=== PATIENT | male | born 2000 | race Caucasian/White ===

== ENCOUNTER 2018-09-01 22:41 | Emergency (ER) | payer OTHER ==
[~2018-09-01] VITALS: Ht 170.2 cm; Wt 94.7 kg
[~2018-09-01 22:41] MED LIST: OXYM15SP34 NASAL; SODI104S2 NASAL
[2018-09-01 22:54] VITALS: BP 142/62; PULSE 91; RESP 18; Ht 170.2 cm; Wt 94.7 kg
[2018-09-02] MEDS ORDERED: OXYMETAZOLINE 0.05% 15 ML NAS SPRAY NASAL ONE
--- NOTE | 2018-09-02 02:06 | ERD ---
ER Documentation Chief Complaint Chief Complaint epistaxis x3hrs from bilateral nares, felt dizzy/lightheaded HPI History of Present Illness: 17-year-old male who denies a past medical history coming with complaint of nosebleed that is been present for 3 hours intermittently prior to arrival which started immediately after his shower. Patient reports that he decided to come to emergency department because he started feeling lightheaded. Patient reports this is his third nosebleed this week. Denies picking nose or inserting anything into the nose. At home pharmacological/nonpharmacological treatment for symptoms: Denies Denies social concerns; Denies recent foreign travel ROS All systems reviewed and are negative except as per history of present illness. Medications Home Meds Active Scripts Sodium Chloride (Chester) 104 Ml Ruth, 1 SPRAY NASAL DAILY PRN for PREVENT NOSE BLEEDS, #1 BOTTLE Prov:ALFONSO HOU NP 09/02/18 Oxymetazoline Hcl* (Afrin Ruth*) 0.05% - 15 Ml Ruth, 3 SPRAYS NASAL BID for 3 Days, #1 EA to each nostril Prov:ALFONSO HOU NP 09/02/18 Allergies Allergies: Coded Allergies: No Known Allergy (Unverified , 09/01/18) PMhx/Soc Medical and Surgical Hx: pt denies Medical Hx, pt denies Surgical Hx Hx Alcohol Use: No Hx Substance Use: No Hx Tobacco Use: No Smoking Status: Never smoker FmHx Family History: No diabetes, No coronary disease Physical Exam Vitals Vital Signs Date Temp Pulse Resp B/P (MAP) Pulse Ox O2 O2 Flow FiO2 Time Delivery Rate 09/01/18 97.7 91 18 142/62 99 22:54 (88) Physical Exam Const: No acute distress, afebrile Head: Atraumatic Eyes: Normal Conjunctiva ENT: Normal External Ears, and Mouth. Dried blood noted to bilateral naris, unable to visualize LONE vessel that is causing bleeding. Neck: Full range of motion. No meningismus. Resp: Clear to auscultation bilaterally Cardio: Regular rate and rhythm, no murmurs Abd: Soft, non tender, non distended. No guarding, no masses, no rigidity Skin: No petechiae or rashes Back: No midline or flank tenderness Ext: No cyanosis, or edema Neur: Awake and alert x3, speaking in clear sentences, no focal deficits or facial asymmetry Psych: Normal Mood and Affect Results 24 hrs Current Medications Medications Dose Sig/Mayco Start Time Status Last (Trade) Ordered Route PRN Stop Time Admin Dose Reason Admin 2 spray ONCE ONCE 09/02/18 DC 09/02/18 Oxymetazoline NASAL 00:00 00:20 HCl (Afrin 09/02/18 00:01 Ruth) Procedures/MDM ED COURSE: ED course includes a thorough examination and history. The patient was stable throughout ED course. I kept the patient and/or family informed of laboratory and diagnostic imaging results throughout the ED course. LABS: None MEDICATIONS GIVEN IN ER: Afrin Patient tolerated medication well with no adverse reactions. MEDICAL DECISION MAKING: Low suspicion for life-threatening medical emergency. Low suspicion for hemodynamic instability. Low suspicion for HEENT medical emergency that requires hospitalization or immediate surgical intervention. Bleeding sized during emergency department using nose pinchers. Otherwise healthy patient presenting with constellation of symptoms likely representing epistaxis As characterized by history, physical exam findings. Patient reassessment @ 0130 : Still no bleeding noted. Patient hemodynamically stable. No respiratory distress, otherwise relatively well appearing and nontoxic. Disposition given. Patient educated on diagnoses, prescriptions, follow-up care, return precautions. Strict return precautions given for worsening condition; questions answered discharge. Patient verbalizes understanding of discharge instructions. PRESCRIPTIONS FOR HOME: Afrin, Chester saline spray DISPOSITION: DISCHARGE At this time, patient is stable for discharge and outpatient management. I have instructed the patient to follow-up with his/her primary care physician in 1-2 days. I have discussed with the patient the possibility of needing to see a specialist for further workup and imaging studies if symptoms persist. I have instructed the patient to promptly return to the ER for any new or worsening symptoms including increased pain, fever, nausea, vomiting, weakness or LOC. The patient and/or family expressed understanding of and agreement with this plan. All questions were answered. Home care instructions were provided. DISCLAIMER: Inadvertent spelling and grammatical errors are likely due to EHR/dictation software use and do not reflect on the overall quality of patient care. Also, please note that the electronic time recorded on this note does not necessarily reflect the actual time of the patient encounter. Departure Diagnosis: Primary Impression: Epistaxis Condition: Stable Patient Instructions: Epistaxis (Adult) Referrals: COMMUNITY CLINICS YOU HAVE RECEIVED A MEDICAL SCREENING EXAM AND THE RESULTS INDICATE THAT YOU DO NOT HAVE A CONDITION THAT REQUIRES URGENT TREATMENT IN THE EMERGENCY DEPARTMENT. FURTHER EVALUATION AND TREATMENT OF YOUR CONDITION CAN WAIT UNTIL YOU ARE SEEN IN YOUR DOCTORS OFFICE WITHIN THE NEXT 1-2 DAYS. IT IS YOUR RESPONSIBILITY TO MAKE AN APPOINTMENT FOR FOLOW-UP CARE. IF YOU HAVE A PRIMARY DOCTOR --you should call your primary doctor and schedule an appointment IF YOU DO NOT HAVE A PRIMARY DOCTOR YOU CAN CALL OUR PHYSICIAN REFERRAL HOTLINE AT IF YOU CAN NOT AFFORD TO SEE A PHYSICIAN YOU CAN CHOSE FROM THE FOLLOWING [facility] CLINICS [facility] [address] [facility] [address] [facility] [address] [facility] [facility] [address] [facility]. [facility] [address] [facility]. [facility] [address] [facility]. [facility] YOU HAVE RECEIVED A MEDICAL SCREENING EXAM AND THE RESULTS INDICATE THAT YOU DO NOT HAVE A CONDITION THAT REQUIRES URGENT TREATMENT IN THE EMERGENCY DEPARTMENT. FURTHER EVALUATION AND TREATMENT OF YOUR CONDITION CAN WAIT UNTIL YOU ARE SEEN IN YOUR DOCTORS OFFICE WITHIN THE NEXT 1-2 DAYS. IT IS YOUR RESPONSIBILITY TO MAKE AN APPOINTMENT FOR FOLOW-UP CARE. IF YOU HAVE A PRIMARY DOCTOR --you should call your primary doctor and schedule and appointment IF YOU DO NOT HAVE A PRIMARY DOCTOR YOU CAN CALL OUR PHYSICIAN REFERRAL HOTLINE AT . IF YOU CAN NOT AFFORD TO SEE A PHYSICIAN YOU CAN CHOSE FROM THE FOLLOWING [facility] INSTITUTIONS: [facility] [address] [place] [address] [facility] [address] [place] [address] [facility] [address] [place] [address] Additional Instructions: Thank you very much for allowing us to participate in your care. Your health and safety is our top priority at [facility]. It is important to read all discharge instructions and education provided in your discharge packet. *See your primary care doctor for a referral to ENT doctor for further evaluation of your nosebleeds. Do not pick or during her nose. Use saline nasal spray every day to keep nose moist.* Call your primary care doctor TOMORROW for an appointment during the next 2-4 days and bring all the information and medications prescribed. Have prescriptions filled and follow precisely the directions on the label. If the symptoms get worse and your provider is unavailable, return to the Emergency Department immediately. ALFONSO HOU NP Sep 02, 2018 02:06
== END 2018-09-02 01:36 | disposition home or self-care (01) ==
LOC: FTE 22:41
DX: R04.0 Epistaxis (principal)
CPT/HCPCS: Z7502; Z7610; 99282